=== PATIENT | male | born 1955 ===

== ENCOUNTER 2017-02-09 05:59 | Day surgery (SDC) | payer OTHER ==
[~2017-02-09] VITALS: Ht 177.8 cm; Wt 89.8 kg
[2017-02-09] MEDS ORDERED: PROPOFOL 200 MG/20 ML VIAL IV ONE (08:10)
[2017-02-09] MEDS ORDERED: SEVOFLURANE 250 ML BTL INH ONE (08:10)
[2017-02-09] MEDS ORDERED: DEXAMETHASONE 4 MG/ML VIAL IVP ONE (08:10)
[2017-02-09] MEDS ORDERED: ONDANSETRON 4 MG/2 ML VIAL IVP ONE (08:10)
[2017-02-09] MEDS ORDERED: MIDAZOLAM 2 MG/2 ML VIAL ONE (08:15)
[2017-02-09] MEDS ORDERED: fentaNYL 0.05 MG/ML VIAL ONE (08:16)
[2017-02-09] MEDS ORDERED: LACTATED RINGERS 1,000 ML IV SCH (08:24)
[2017-02-09] MEDS ORDERED: MEPERIDINE 25 MG/ML SYR IVP PRN (08:25)
[2017-02-09] MEDS ORDERED: diphenhydrAMINE 50 MG/ML VIAL IVP PRN ×2 (08:25→08:40)
[2017-02-09] MEDS ORDERED: HYDROmorphone 1 MG/ML AMP IVP PRN (08:25)
[2017-02-09] MEDS ORDERED: ONDANSETRON 4 MG/2 ML VIAL IVP PRN (08:25)
== END 2017-02-09 10:40 | disposition home or self-care (01) ==
LOC: MDS 05:59 → MMU 06:03 → MDS 10:40
PROVIDERS: ATTEND Urology
DX: N35.9 Urethral stricture, unspecified (principal); Z98.890 Other specified postprocedural states; Z79.899 Other long term (current) drug therapy; Z88.8 Allergy status to other drugs, medicaments and biological substances
CPT/HCPCS: 52275; 71010; 93005; C1769; J0690; J1100; J2250; J2405; J2704; J3010; J7060; J7120